=== PATIENT | male | born 1955 | race Caucasian/White ===

== ENCOUNTER 2018-03-19 08:38 | Emergency (ER) | payer OTHER ==
[~2018-03-19] VITALS: Ht 170.2 cm; Wt 80.7 kg
[2018-03-19 08:55] VITALS: BP 137/75
--- NOTE | 2018-03-19 09:10 | NUR ---
PT. CAME INTO THE ED DUE TO ABD PAIN X 1 MONTH. PT. STATES " I HAVE STOMACH PAIN ON AND OFF FOR ABOUT A MONTH, I NOTICED IT GETS WORSE WHEN I EAT REALLY SPICY FOOD". RR EVEN AND UNLABORED. PT DOES NOT HAVE PAIN AT THIS TIME. DENIES N/V/D. ABD NON TENDER UPON PALPATION. ACTIVE X 4 QUADRANTS . ER MD NOTIFIED. WILL CONTINUE TO MONITOR. SAFETY PRECAUTIONS IMPLEMENTED.
--- NOTE | 2018-03-19 09:12 | NUR ---
Patient ambulated to bed 1. RN evaluating patient at bedside.
--- NOTE | 2018-03-19 09:35 | NUR ---
Patient discharged with v/s stable. Written and verbal after care instructions given and explained. Patient alert, oriented and verbalized understanding of instructions. Ambulatory with steady gait. All questions addressed prior to discharge. ID band removed. Patient advised to follow up with PMD. Rx of PROTONIX 40MG given. Patient educated on indication of medication including possible reaction and side effects. Opportunity to ask questions provided and answered.
== END 2018-03-19 09:35 | disposition home or self-care (01) ==
LOC: MED 08:38
DX: R10.9 Unspecified abdominal pain (principal)
CPT/HCPCS: 99283